=== PATIENT | male | born 1985 | race Hispanic/Latino ===

== ENCOUNTER 2018-06-17 17:21 | Emergency (ER) | payer OTHER ==
--- NOTE | 2018-06-17 18:01 | Emergency Department Report ---
Blank Doc - Documentation Documentation: This is a 33-year-old male that presents with left eye pain and foreign body s ensation. This initial assessment/diagnostic orders/clinical plan/treatment(s) is/are subject to change based on patient's health status, clinical progression and re- assessment by fellow clinical providers in the ED. Further treatment and workup at subsequent clinical providers discretion. Patient/guardians urged not to elope from the ED as their condition may be serious if not clinically assessed and managed. Initial orders include: 1- Patient sent to MAIN ED for further evaluation and treatment 2- sanchez lamp
[2018-06-17 18:02] VITALS: BP 127/85
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
== END 2018-06-17 22:27 | disposition home or self-care (01) ==
LOC: ED 17:21
DX: H10.32 Unspecified acute conjunctivitis, left eye (principal); J45.909 Unspecified asthma, uncomplicated; F17.200 Nicotine dependence, unspecified, uncomplicated; Z79.899 Other long term (current) drug therapy
CPT/HCPCS: 99283

== ENCOUNTER 2021-09-10 07:15 | Emergency (ER) | payer OTHER ==
[2021-09-10 07:44] VITALS: BP 118/71
[2021-09-10] MEDS ORDERED: IBUPROFEN 800 MG TAB PO ONE (08:52)
[2021-09-10] MEDS ORDERED: HYDROcodone/ACETAMINOPHEN 5-325 MG TAB PO ONE (08:52)
[2021-09-10] MEDS ORDERED: CYCLOBENZAPRINE 10 MG TAB PO ONE (08:52)
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
== END 2021-09-10 09:13 | disposition home or self-care (01) ==
LOC: ED 07:15
DX: M79.18 Myalgia, other site (principal); V89.2XXA Person injured in unspecified motor-vehicle accident, traffic, initial encounter; Y93.89 Activity, other specified; Y92.89 Other specified places as the place of occurrence of the external cause; Y99.8 Other external cause status
CPT/HCPCS: 99282